=== PATIENT | female | born 1990 | race African-American/Black ===

== ENCOUNTER 2017-12-15 10:03 | Emergency (ER) | payer BC, MEDICAID, OTHER ==
[2017-12-15 11:38] LABS: AUTOMATED NEUTROPHIL # 3.4 TH/MM3 (1.8-7.7); BASOPHIL % 0.4 % (0.0-2.0); EOSINOPHIL # 0.1 TH/MM3 (0-0.4); EOSINOPHIL % 1.4 % (0.0-4.0); HEMATOCRIT 33.2 % (35.0-46.0); HEMO FLAGS DIFF FINAL; HEMOGLOBIN 10.8 GM/DL (11.6-15.3); LYMPH % 22.7 % (9.0-44.0); LYMPHOCYTE # 1.1 TH/MM3 (1.0-4.8); MEAN CELL VOLUME 98.1 FL (80.0-100.0); MEAN CORPUSCULAR HEMOGLOBIN 31.8 PG (27.0-34.0); MEAN CORPUSCULAR HGB CONC 32.4 % (32.0-36.0); MEAN PLATELET VOLUME 7.6 FL (7.0-11.0); MONO % 5.6 % (0.0-8.0); MONOCYTE # 0.3 TH/MM3 (0-0.9); NEUT % 69.9 % (16.0-70.0); PLATELET COUNT 418 TH/MM3 (150-450); RED BLOOD COUNT 3.39 MIL/MM3 (4.00-5.30); WHITE BLOOD COUNT 4.9 TH/MM3 (4.0-11.0)
[2017-12-15 11:57] LABS: BETA HCG QUANT 73 MIU/ML (0-5)
== END 2017-12-15 12:48 | disposition home or self-care (01) ==
LOC: PHED 10:03
DX: O26.891 Other specified pregnancy related conditions, first trimester (principal); R10.2 Pelvic and perineal pain
CPT/HCPCS: 84702; 84703; 85025; 99283

== ENCOUNTER 2017-12-22 09:16 | Emergency (ER) | payer BC, MEDICAID ==
[~2017-12-22] VITALS: Ht 162.6 cm; Wt 95.0 kg
[~2017-12-22 09:16] MED LIST: PHEN-556 PO
[2017-12-22 09:29] VITALS: BP 136/72; PULSE 123; RESP 16; TEMP 98.6; O2SAT 100
--- NOTE | 2017-12-22 09:50 | PD ---
HPI Chief Complaint: It Support Technician Problem/Complaint Time Seen by Provider: 09:40 Travel History International Travel<30 days: No Contact w/Intl Traveler<30days: No Traveled to known affect area: No History of Present Illness HPI This 27-year-old female is complaining of lower abdominal cramping and back pain. She was seen here for similar complaints about a week ago. Her last period was November 02 and she said she was . Beta titer came back at 73. She has not had any vaginal bleeding. She is 4 para 1. She has had 2 miscarriages PFSH Past Medical History Hx Anticoagulant Therapy: No Diabetes: No ?: LMP: 11/02/17 Past Surgical History Section: Yes (X1) Social History Alcohol Use: No Tobacco Use: No Substance Use: No Allergies-Medications (Allergen,Severity, Reaction): Coded Allergies: morphine (Verified Adverse Reaction, Intermediate, Itching, 12/22/17) Reported Meds & Prescriptions Reported Meds & Active Scripts Active Reported Lomaira (Phentermine HCl) 8 Mg Tab 37.5 Mg PO TID Review of Systems General / Constitutional: No: Fever, Chills Eyes: No: Diploplia, Blurred Vision HENT: No: Headaches, Vertigo Cardiovascular: No: Chest Pain or Discomfort, Palpitations Respiratory: No: Cough, Shortness of Breath Gastrointestinal: No: Nausea, Vomiting Genitourinary: Positive: Pelvic Pain, No: Urgency, Frequency, Dysmenorrhea, Vaginal Bleeding Skin: No Rash, No Itching Neurologic: No: Weakness, Dizziness Endocrine: No: Heat Intolerance, Cold Intolerance Hematologic/Lymphatic: No: Easy Bruising Physical Exam Narrative GENERAL: Well-developed female SKIN: Focused skin assessment warm/dry. HEAD: Atraumatic. Normocephalic. EYES: Pupils equal and round. No scleral icterus. No injection or drainage. ENT: No nasal bleeding or discharge. Mucous membranes pink and moist. NECK: Trachea midline. No JVD. CARDIOVASCULAR: Regular rate and rhythm. No murmur appreciated. RESPIRATORY: No accessory muscle use. Clear to auscultation. Breath sounds equal bilaterally. GASTROINTESTINAL: Abdomen soft, non-tender, nondistended. Hepatic and splenic margins not palpable. RECRUITMENT ADVERTISING MANAGER: There is moderate amount of whitish discharge. Os is closed. There is really no pain with movement of the cervix. No adnexal masses MUSCULOSKELETAL: No obvious deformities. No clubbing. No cyanosis. No edema. NEUROLOGICAL: Awake and alert. No obvious cranial nerve deficits. Motor grossly within normal limits. Normal speech. PSYCHIATRIC: Appropriate mood and affect; insight and judgment normal. Data Data Last Documented VS Vital Signs Date Time Temp Pulse Resp B/P (MAP) Pulse Ox O2 Delivery O2 Flow Rate FiO2 12/22/17 11:45 16 12/22/17 11:40 90 118/66 (83) 12/22/17 09:29 98.6 100 Orders Orders Complete Blood Count With Diff (12/22/17 09:46) Urinalysis - C+S If Indicated (12/22/17 09:46) Beta Hcg (Quant/Titer) (12/22/17 09:46) Gc And Chlamydia Pcr (12/22/17 10:19) Wet Prep Profile (12/22/17 10:19) Us Pelvis (Ques Pr/Ect)W Trans (12/22/17 11:13) Labs Laboratory Tests Test 12/22/17 10:00 12/22/17 10:10 12/22/17 10:15 Urine Collection Type VOIDED Urine Color STRAW Urine Turbidity CLEAR Urine pH 6.0 Urine Specific [place] 1.005 Urine Protein NEG mg/dL Urine Glucose (UA) NEG mg/dL Urine Ketones NEG mg/dL Urine Occult Blood NEG Urine Nitrite NEG Urine Bilirubin NEG Urine Leukocyte Esterase NEG Urine Squamous Epithelial Cells 0-3 /hpf Microscopic Urinalysis Comment CULT NOT INDICATED White Blood Count 5.1 TH/MM3 Red Blood Count 3.89 MIL/MM3 Hemoglobin 12.3 GM/DL Hematocrit 37.7 % Mean Corpuscular Volume 97.1 FL Mean Corpuscular Hemoglobin 31.6 PG Mean Corpuscular Hemoglobin Concent 32.5 % Red Cell Distribution Width 13.3 % Platelet Count 505 TH/MM3 Mean Platelet Volume 7.6 FL Neutrophils (%) (Auto) 66.6 % Lymphocytes (%) (Auto) 24.1 % Monocytes (%) (Auto) 5.7 % Eosinophils (%) (Auto) 1.3 % Basophils (%) (Auto) 2.3 % Neutrophils # (Auto) 3.4 TH/MM3 Lymphocytes # (Auto) 1.2 TH/MM3 Monocytes # (Auto) 0.3 TH/MM3 Eosinophils # (Auto) 0.1 TH/MM3 Basophils # (Auto) 0.1 TH/MM3 CBC Comment DIFF FINAL Differential Comment Human Chorionic Gonadotropin, Quant 1787 MIU/ML Clue Cells (Wet Prep) NONE SEEN Vaginal Trichomonas (Wet Prep) NONE SEEN Vaginal Yeast (Wet Prep) NONE SEEN MDM Medical Decision Making Medical Screen Exam Complete: Yes Emergency Medical Condition: Yes Medical Record Reviewed: Yes Differential Diagnosis Differential includes ectopic , incomplete miscarriage, early Narrative Course Beta hCG today is 1787. Urine is negative for infection. Ultrasound has been done. No intrauterine gestation cannot be confirmed. There is a small cystic area in the endometrial cavity which could represent a gestational sac but is too early to determine. Follow-up is recommended. There are bilateral ovarian cysts one of which could be a corpus luteal cyst. Ectopic is not excluded and close follow-up was recommended. Diagnosis Primary Impression: Additional Instructions: Return immediately for pain or bleeding, follow-up with OB in 2 days Disposition: 01 DISCHARGE HOME Condition: Stable Patel Alvarenga MD Dec 22, 2017 09:50
[2017-12-22 10:21] LABS: BILIRUBIN, URINE NEG (NEG); BLOOD, URINE NEG (NEG); GLUCOSE,URINE NEG (NEG); KETONE, URINE NEG (NEG); NITRITE,URINE NEG (NEG); URINE LEUKOCYTE ESTERASE NEG (NEG)
[2017-12-22 10:30] VITALS: BP 128/74; PULSE 87; RESP 16
[2017-12-22 10:31] LABS: SQUAMOUS EPITHELIAL CELL URINE 0-3 /hpf (0-5); URINE COLOR STRAW (YELLW/STRAW)
[2017-12-22 10:32] LABS: AUTOMATED NEUTROPHIL # 3.4 TH/MM3 (1.8-7.7); BASOPHIL # 0.1 TH/MM3 (0-0.2); BASOPHIL % 2.3 % (0.0-2.0); EOSINOPHIL # 0.1 TH/MM3 (0-0.4); EOSINOPHIL % 1.3 % (0.0-4.0); HEMATOCRIT 37.7 % (35.0-46.0); HEMOGLOBIN 12.3 GM/DL (11.6-15.3); LYMPH % 24.1 % (9.0-44.0); LYMPHOCYTE # 1.2 TH/MM3 (1.0-4.8); MEAN CELL VOLUME 97.1 FL (80.0-100.0); MEAN CORPUSCULAR HEMOGLOBIN 31.6 PG (27.0-34.0); MEAN CORPUSCULAR HGB CONC 32.5 % (32.0-36.0); MEAN PLATELET VOLUME 7.6 FL (7.0-11.0); MONO % 5.7 % (0.0-8.0); MONOCYTE # 0.3 TH/MM3 (0-0.9); NEUT % 66.6 % (16.0-70.0); PLATELET COUNT 505 TH/MM3 (150-450); RED BLOOD COUNT 3.89 MIL/MM3 (4.00-5.30); RED CELL DISTRIBUTION WIDTH 13.3 % (11.6-17.2); WHITE BLOOD COUNT 5.1 TH/MM3 (4.0-11.0)
[2017-12-22 11:40] VITALS: BP 118/66; PULSE 90; RESP 16
--- NOTE | 2017-12-22 12:21 | RADRPT ---
EXAM DATE/TIME: 12/22/2017 11:23 [facility] COMPARISON: No previous studies available for comparison. INDICATIONS : Back pain. LAB(S): Beta-hC12/15/17: 73, 12/22/17: 1787 MEDICAL HISTORY : . SURGICAL HISTORY : section. ENCOUNTER: Initial ACUITY: 2 days PAIN SCORE: 2/10 LOCATION: Bilateral pelvis MEASUREMENTS: UTERUS: 8.8 x 5.9 x 6.5 cm ENDOMETRIAL STRIPE: 15 mm RIGHT OVARY: 3.9 x 2.5 x 3.3 cm LEFT OVARY: 3.9 x 2.5 x 2.7 cm FREE FLUID: Yes cul-de-sac. CROWN RUMP LENGTH: Not visualized. = WKS DAYS FHR: Not visualized. BPM FINDINGS: UTERUS: There is a small cystic area within the endometrial cavity measuring 0.4 x 0.5 x 0.4 cm. This could p otentially represent a gestational sac however, this cannot be confirmed given the absence of yolk sa c or embryonic pole. RIGHT OVARY: There is a 2.5 x 2.1 x 2.2 cm cyst seen at the right ovary. LEFT OVARY: There is a 2.6 x 1.8 x 2.2 cm cyst of the left ovary. MISCELLANEOUS: There is mild free fluid in the cul-de-sac. CONCLUSION: 1. Intrauterine gestation is not confirmed. There is a small cystic area in endometrial cavity which could potentially represent a gestational sac which is too early to confirm. Followup is recommended. 2. Bilateral ovarian cysts. One of these could represent a corpus luteal cyst. An ectopic is not excl uded. Followup is recommended. Kyler Tomlin MD on December 22, 2017 at 12:14 Board Certified Radiologist. This report was verified electronically.
[2017-12-22 12:54] VITALS: BP 109/62
== END 2017-12-22 13:01 | disposition home or self-care (01) ==
LOC: PHED 09:16
DX: O26.90 Pregnancy related conditions, unspecified, unspecified trimester (principal); N83.202 Unspecified ovarian cyst, left side; N83.201 Unspecified ovarian cyst, right side; Z88.5 Allergy status to narcotic agent; Z79.899 Other long term (current) drug therapy
CPT/HCPCS: 76700; 76817; 81001; 84702; 85025; 87210; 87491; 87591